=== PATIENT | male | born 1945 | race Caucasian/White ===

== ENCOUNTER 2021-02-05 09:29 | Outpatient (CLI) | payer MEDICARE | END 2021-02-05 09:30 | disposition home or self-care (01) | LOC: CSHCT 09:29 | PROVIDERS: ATTEND Family Medicine | DX: R19.00 Intra-abdominal and pelvic swelling, mass and lump, unspecified site (principal); I72.2 Aneurysm of renal artery | CPT/HCPCS: 74170; 82565 ==

== ENCOUNTER 2022-09-02 08:22 | Outpatient (CLI) | payer OTHER ==
[2022-09-02] MEDS ORDERED: Iopamidol 300 61% 100 ML VIAL FS ONE (08:42)
== END 2022-09-02 08:23 | disposition home or self-care (01) ==
LOC: CSHCT 08:22
PROVIDERS: ATTEND Specialist
DX: I70.1 Atherosclerosis of renal artery (principal); N28.9 Disorder of kidney and ureter, unspecified; Z98.890 Other specified postprocedural states; I72.2 Aneurysm of renal artery
CPT/HCPCS: 74170